=== PATIENT | female | born 1975 | race Two or more races ===

== ENCOUNTER 2016-07-03 15:44 | Emergency (ER) | payer MEDICAID ==
[~2016-07-03] VITALS: Ht 157.5 cm; Wt 81.6 kg
[2016-07-03 15:48] VITALS: BP 130/68
[2016-07-03] MEDS ORDERED: TRANDATE200 M1 PO (15:54)
[2016-07-03] MEDS ORDERED: NACL 0.9% 1,000 ML IV SCH (15:58)
[2016-07-03] MEDS ORDERED: FAMOTIDINE 20 MG/2 ML VIAL IVP ONE (16:00)
[2016-07-03] MEDS ORDERED: ONDANSETRON 4 MG/2 ML VIAL IVP ONE (16:00)
--- NOTE | 2016-07-03 16:00 | NUR ---
Patient taken to bed 04 via wheelchair per tech.
--- NOTE | 2016-07-03 16:00 | NUR ---
PATIENT PRESENTS TO ED WITH C/O VOMITING AND FEVER STARTING TODAY, PT. 3 DAYS S/P VAGINAL DELIVERY, PT. STATES MINIMAL VAGINAL BLEEDING AND LOWER ABD PAIN; DENIES DIARRHEA; SKIN IS PINK/WARM/DRY; AAOX4 WITH EVEN AND STEADY GAIT; LUNGS CLEAR BL; HR EVEN AND REGULAR; PT DENIES ANY FEVER, CP, SOB, OR COUGH AT THIS TIME; PATIENT STATES PAIN OF 8/10 AT THIS TIME; VSS; PATIENT POSITIONED FOR COMFORT; HOB ELEVATED; BEDRAILS UP X2; BED DOWN. ER MD MADE AWARE OF PT STATUS.
[2016-07-03] MEDS ORDERED: NACL 0.9% 1,000 ML IV ONE ×2 (16:05→17:20)
[2016-07-03] MEDS ORDERED: cefTRIAXone 2,000 MG in DEXTROSE 5% 100 ML IV ONE (16:05)
[2016-07-03] MEDS ORDERED: cefTRIAXone 2,000 MG VIAL ONE (16:11)
--- NOTE | 2016-07-03 16:19 | NUR ---
Dr. Chatman evaluating patient at bedside.
[2016-07-03 19:00] VITALS: BP 138/69
--- NOTE | 2016-07-03 19:00 | NUR ---
Patient discharged with v/s stable. Written and verbal after care instructions given and explained. Patient alert, oriented and verbalized understanding of instructions. Ambulatory with steady gait. All questions addressed prior to discharge. ID band removed. Patient advised to follow up with PMD. Rx of ZOFRAN, KEFLEX, TRAMADOL given. Patient educated on indication of medication including possible reaction and side effects. Opportunity to ask questions provided and answered.
== END 2016-07-03 19:00 | disposition home or self-care (01) ==
LOC: MED 15:44
DX: N61.0 Mastitis without abscess (principal); K75.9 Inflammatory liver disease, unspecified; R03.0 Elevated blood-pressure reading, without diagnosis of hypertension
CPT/HCPCS: 36415; 80053; 81001; 81025; 82150; 82948; 83605; 83690; 85025; 87040; 87086; 96365; 96375; 99285; J0696; J2405; J3490; J7030